=== PATIENT | male | born 1980 | race Caucasian/White ===

== ENCOUNTER 2022-05-28 13:56 | Outpatient (CLI) | payer OTHER | END 2022-05-28 13:57 | disposition left against medical advice (07) | LOC: EMS 13:56 | DX: S02.2XXA Fracture of nasal bones, initial encounter for closed fracture (principal); R55 Syncope and collapse; W18.39XA Other fall on same level, initial encounter; Y92.89 Other specified places as the place of occurrence of the external cause ==